=== PATIENT | female | born 1950 | race Caucasian/White ===

== ENCOUNTER 2021-12-18 10:40 | Observation (INO) ==
[2021-12-18] MEDS ORDERED: 0.9 % Sodium Chloride 1,000 ML IVC ONE (10:46)
[2021-12-18] MEDS ORDERED: Ondansetron 4 MG/2 ML VIAL IVP ONE (10:46)
[2021-12-18] MEDS ORDERED: Ondansetron 4 MG/2 ML VIAL IVP PRN (12:40)
[2021-12-18] MEDS ORDERED: Naloxone 0.4 MG/ML INJ IVP PRN (12:40)
[2021-12-18] MEDS: 0.9 % Sodium Chloride 1,000 ML IVC SCH ×2 (13:05→14:42)
[2021-12-18 13:24] LABS: Basophils % 0.4 %; Eosinophils # 0.1 K/mcL (0.0-0.6); Eosinophils % 0.9 %; Hematocrit 38.8 % (35.3-44.9); Hemoglobin 13.2 g/dL (11.5-15.4); Immature Granulocytes % 0.5 % (0-4); Lymphocytes # 0.9 K/mcL (0.6-4.6); Lymphocytes % 9.1 %; Mean Corpuscular Volume 91.1 fL (83.0-100.0); Mean Platelet Volume 9.4 fL (9.4-12.4); Monocytes # 0.9 K/mcL (0.0-1.3); Monocytes % 9.1 %; Neutrophils # 8.2 K/mcL (1.6-8.9); Platelet Count 329 K/mcL (140-400); Red Blood Count 4.26 M/mcL (3.82-4.97); Red Cell Distribution Width 13.3 % (11.5-14.5); White Blood Count 10.3 K/mcL (4.3-11.1)
[2021-12-18] MEDS ORDERED: Ketorolac 30 MG/ML VIAL IVP PRN (13:33)
[2021-12-18 13:44] LABS: BUN/Creatinine Ratio 21 (6-26); Blood Urea Nitrogen 15 mg/dL (8-23); Calcium 8.9 mg/dL (8.6-10.3); Carbon Dioxide 23 mEq/L (23-29); Chloride 107 mEq/L (98-107); Glucose 101 mg/dL (70-105); Magnesium 2.1 mg/dL (1.6-2.6); Osmolality,Calculated 283 (280-300); Potassium 3.8 mEq/L (3.5-5.1); Sodium 136 mEq/L (136-145); eGFR For African Americans > 60 (> 60); eGFR For Non-African Americans > 60 (> 60)
[2021-12-18] MEDS: *HR* Heparin 5,000 UNIT/ML VIAL SQ SCH (18:32)
[2021-12-19] MEDS: *HR* Heparin 5,000 UNIT/ML VIAL SQ SCH (05:26)
[2021-12-19 06:45] VITALS: BP 124/70; PULSE 70; TEMP 97.8; O2SAT 96
[2021-12-19] MEDS ORDERED: Pfizer Covid-19 Vaccine 30MCG/0.3ML IM ONE (10:41)
[2021-12-19] MEDS ORDERED: Moderna Covid-19 Vaccine 100MCG/0.5mL IM ONE (11:15)
== END 2021-12-19 14:14 | disposition home or self-care (01) ==
LOC: EMEROOARM 10:40 → 3BNU 10:40 → SUATTDRO 12:48 → 3BNU 14:44
PROVIDERS: ADMIT Internal Medicine; ATTEND Internal Medicine